=== PATIENT | male | born 2000 | race Caucasian/White ===

== ENCOUNTER 2020-09-27 02:16 | Emergency (ER) | payer SELFPAY ==
[2020-09-27 02:19] VITALS: BP 155/77; PULSE 110; RESP 18; TEMP 36.4; O2SAT 100
--- NOTE | 2020-09-27 02:37 | ED.SKABFB ---
HPI - Skin/Abscess/Foreign Bdy General Chief complaint: Skin/Abscess/Foreign Body Stated complaint: hives Time Seen by Provider: 09/27/20 02:35 History of Present Illness HPI narrative: Sudden onset of hives on the chest, back, neck and extremities. Started about 20 minutes prior to arrival here. This was associated with mild fullness in his throat. No obvious exposures. He has had them multiple times since moving in with his girlfriend. Seem to be getting worse each time. At the time of my evaluation symptoms have nearly resolved. Related Data Allergies Allergy/AdvReac Type Severity Reaction Status Date / Time banana Allergy Unknown Unknown Verified 09/27/20 02:21 Review of Systems Review of Systems: All systems reviewed & are unremarkable except as noted in HPI and below Constitutional: Constitutional: Denies chills and Denies fever(s) ENT: Denies sore throat Cardiovascular: Cardiovascular: Denies chest pain Respiratory: Respiratory: Denies dyspnea Gastrointestinal: Gastrointestinal: Denies abdominal pain, Denies nausea and Denies vomiting Musculoskeletal: Musculoskeletal: Denies back pain Integumentary/Breasts: Skin/Breast: Reports rash Neurologic: Denies weakness Allergic/Immunologic: Allergic/Immunologic: Denies lip swelling, Reports throat swelling and Denies tongue swelling [facility] Past Medical History Medical History (Updated 10/15/20 @ 13:12 by Desmond Barlow MD) Healthy adult Social History Social History Smoking packs per day: 0.5 Smoking cigarettes per day: 10.0 Smoking status: Current every day smoker Gender identity (if verbalized by the patient): Male Exam Const: General: healthy appearing, no acute distress and alert Orientation/consciousness: patient oriented x3 HENMT: Head: normal to inspection Mouth: Yes Normal oral and palatal mucosa present Eyes: Pupils: Equal, round and reactive pupils present EOM: EOMs intact bilaterally Neck: Neck: normal visual inspection and no lymphadenopathy Other: no stridor Chest: Chest palpation & inspection: normal inspection of the chest Resp: Effort & Inspection: normal respiratory effort Auscultation: clear to auscultation bilaterally, no rales, no rhonchi and no wheezes Cardio: Jugular venous distension: no JVD Rate: regular rate Rhythm: regular rhythm Heart sounds: no murmurs GI: Inspection: non-distended GI Palp: Yes Soft to palpation and No Tenderness to palpation present (GI) Skin: Other: nonspecific red rash to upper back Neuro: General: patient oriented x3 and moves all extremities Speech: normal speech Extrem: General: no edema Psych: Appearance: grossly normal and well kempt Mental Status: mental status grossly normal Affect: normal affect Course Vital Signs Vital signs: Vital Signs Temperature 36.4 C L 09/27/20 02:19 Pulse Rate 110 H 09/27/20 02:19 Respiratory Rate 18 09/27/20 02:19 Blood Pressure 155/77 H 09/27/20 02:19 Pulse Oximetry 100 09/27/20 02:19 Temperature 36.4 C L 09/27/20 02:19 Pulse Rate 110 H 09/27/20 02:19 Respiratory Rate 18 09/27/20 02:19 Blood Pressure 155/77 H 09/27/20 02:19 Pulse Oximetry 100 09/27/20 02:19 MDM - Skin/Abscess/Foreign Bdy MDM Narrative Medical decision making narrative: It seems that he has some recurrent allergic reaction. Symptoms resolving rapidly at this time. I discussed the need for allergy testing and suggested paying close attention to any possible causitive exposures as his symptoms will probably continue to worsen with each episode. Differential Diagnosis Differential diagnosis: Likely urticaria, insect bites and contact dermatitis Medical Records Attestation: I reviewed the patient's medical records. Discharge Plan Discharge Clinical Impression: Urticaria Patient Disposition: Home, Self-Care Condition: Stable Instructions: Urticaria (ED) Prescriptio
== END 2020-09-27 02:41 | disposition home or self-care (01) ==
PROVIDERS: Emergency Provider Emergency Medicine
DX: L50.9 Urticaria, unspecified (principal); F17.210 Nicotine dependence, cigarettes, uncomplicated
CPT/HCPCS: 99283

== ENCOUNTER 2021-01-14 17:35 | Emergency (ER) | payer SELFPAY ==
--- NOTE | 2021-01-14 17:45 | ED.NAVMDI ---
HPI - Nausea/Vomiting/Diarrhea General Chief complaint: Nausea/Vomiting/Diarrhea Stated complaint: abd pain Time Seen by Provider: 01/14/21 17:52 Source: patient and RN notes reviewed Mode of arrival: ambulatory Limitations: no limitations History of Present Illness HPI Narrative: 21-[id number]-year-old male presents with concern for 2 episodes of vomiting this morning. Reports nausea throughout the rest of the day. He denies abdominal pain, diarrhea, fever, aches, chills, sweats, sore throat, headache, general malaise. Denies any known sick contacts. Reports he has been drinking liquids, has not tried to eat any food. Reports normal bowel movements. MD elicited complaint: vomiting Related Data Allergies Allergy/AdvReac Type Severity Reaction Status Date / Time banana Allergy Unknown Unknown Verified 01/14/21 17:44 Review of Systems Review of Systems: Narrative: CONSTITUTIONAL: Denies malaise, chills, sweats, or fever. EYES: Denies visual changes, redness, or discharge. ENT: Denies rhinorrhea, congestion, sinus pain, otalgia or sore throat. CARDIOVASCULAR: Denies chest pain, palpitations, or edema. RESPIRATORY: Denies cough or dyspnea. GASTROINTESTINAL: Denies abdominal pain, diarrhea, bloody, or mucous stools. Reports nausea and vomiting GENITOURINARY: Denies dysuria or hematuria. SKIN: Denies rash or itching. MUSCULOSKELETAL: Denies back pain, joint pain, or myalgia. NEUROLOGIC: Denies numbness, weakness, or headache. PSYCHIATRIC: Denies anxiety or depression. All systems reviewed & are unremarkable except as noted in HPI and below PMFSH Past Medical History Medical History (Updated 01/14/21 @ 18:01 by Radha Parikh NP) Healthy adult Social History Social History Smoking packs per day: 0.5 Smoking cigarettes per day: 10.0 Smoking status: Current every day smoker Gender identity (if verbalized by the patient): Male Comments At time of signature, agree with nursing past medical, surgical, social and family history. There is no relevant family history pertinent to the presenting complaint Exam Narrative: Exam Narrative: GENERAL: Well-appearing, well-nourished, and in no acute distress. HEAD: Normocephalic, atraumatic. EYES: PERRLA, conjunctivae clear, and EOMI. ENT: Nares clear, turbinates pink, no rhinorrhea or epistaxis. Mucous membranes moist. Oropharynx without edema, erythema, or lesions. Tonsils not enlarged and without exudate. NECK: Supple. No lymphadenopathy CHEST: Speaks in full sentences. No respiratory distress. HEART: Regular rate and rhythm. ABDOMEN: Soft, flat, nondistended. No guarding, rebound tenderness, or rigid. No pulsatilla masses. Bowel sounds present in all four quadrants. No organomegaly. Negative Romero?s sign. No periumbilical tenderness. No Supra public tenderness or distension. Good femoral pulses bilaterally. No hernia noted. No scars or surface trauma. SKIN: Warm, dry, no rash. NEURO: Alert and oriented x3. PSYCH: Normal mood and affect Course Course Emergency Course: Patient is aware of diagnosis, understands and agrees to treatment plan. Anticipatory guidance given. Patient agrees to follow-up as directed and is aware of reasons to seek care at the emergency department. Portions of this record may have been created with voice recognition software Vital Signs Vital signs: Vital Signs Temperature 97.8 F 01/14/21 17:51 Pulse Rate 103 H 01/14/21 17:51 Respiratory Rate 18 01/14/21 17:51 Blood Pressure 138/72 01/14/21 17:51 Pulse Oximetry 99 01/14/21 17:51 Temperature 97.8 F 01/14/21 17:51 Pulse Rate 103 H 01/14/21 17:51 Respiratory Rate 18 01/14/21 17:51 Blood Pressure 138/72 01/14/21 17:51 Pulse Oximetry 99 01/14/21 17:51 Reviewed. MDM - Nausea/Vomiting/Diarrhea MDM Narrative Medical decision making narrative: No evidence of pancreatitis, AAA, cholecystitis, choledocholithia
[2021-01-14 17:51] VITALS: BP 138/72; PULSE 103; RESP 18; TEMP 36.6; O2SAT 99
== END 2021-01-14 18:05 | disposition home or self-care (01) ==
PROVIDERS: Emergency Provider Nurse Practitioner
DX: R11.2 Nausea with vomiting, unspecified (principal); F17.210 Nicotine dependence, cigarettes, uncomplicated
CPT/HCPCS: 99213; G0463

== ENCOUNTER 2021-12-03 13:24 | Emergency (ER) | payer SELFPAY ==
[2021-12-03 13:35] VITALS: BP 120/75; PULSE 69; RESP 16; TEMP 36.4; O2SAT 99
--- NOTE | 2021-12-03 13:42 | ED.EYEPROB ---
HPI - Eye Problem General Chief complaint: Eye Problems Stated complaint: redness allison eyes Time Seen by Provider: 12/03/21 13:42 Source: patient, RN notes reviewed and old records reviewed Mode of arrival: ambulatory Limitations: no limitations History of Present Illness HPI Narrative: 21-year-old male presents to the [facility] with red eyes bilaterally since Sunday, 3 days. No treatment prior to arrival. Is supposed to wear glasses but does not have them. Denies any change in vision. Denies any discharge. Denies any trauma. Denies any pain MD chief complaint: eye redness Related Data Allergies Allergy/AdvReac Type Severity Reaction Status Date / Time banana Allergy Unknown Unknown Verified 01/14/21 17:44 Review of Systems Review of Systems: All systems reviewed & are unremarkable except as noted in HPI and below Constitutional: Constitutional: Reports no additional constitutional complaints, Denies chills and Denies fever(s) Eyes: Eyes: Reports as per HPI, Denies change in vision and Denies photophobia Comments: Eye redness ENT: Reports system reviewed and no additional complaints, except as documented and Denies sore throat Cardiovascular: Cardiovascular: Reports no additional cardiovascular complaints and Denies chest pain Respiratory: Respiratory: Reports no additional respiratory complaints, Denies cough and Denies dyspnea Gastrointestinal: Gastrointestinal: Reports no additional gastrointestinal complaints, Denies abdominal pain, Denies nausea and Denies vomiting Musculoskeletal: Musculoskeletal: Reports no additional musculoskeletal complaints Integumentary/Breasts: Skin/Breast: Reports system reviewed and no additional complaints, except as docu Neurologic: Reports system reviewed and no additional complaints, except as documented Psychiatric: Psychiatric: Reports no additional psychiatric complaints Allergic/Immunologic: Allergic/Immunologic: Reports no additional allergic/immunologic complaints [facility] Past Medical History Medical History Healthy adult Social History Social History Smoking packs per day: 0.5 Smoking cigarettes per day: 10.0 Smoking status: Current every day smoker Gender identity (if verbalized by the patient): Male Comments At the time of my signature, I reviewed and agree with the nursing past medical, surgical, social, and family history. There is no relevant family history pertinent to the patient complaint. Exam Const: General: healthy appearing, no acute distress and alert; No ill appearing Nutritional Appearance: well nourished Orientation/consciousness: patient oriented x3 Limitations: no limitations HENMT: Head: normal to inspection Ears: external ears normal, TM's normal bilaterally and EAC's normal Eyes: Visual Damico: normal visual damico by confrontation Alignment and Position: alignment normal Eyelids: eyelids normal Conjunctivae: conjunctivae normal Cornea: corneas abnormal bilateral other (Redness); without abrasions and with no foreign body noted Pupils: Equal, round and reactive pupils present Direct Ophthalmoscopy: no photophobia Neck: Neck: normal visual inspection, no lymphadenopathy and no meningeal signs Chest: Chest palpation & inspection: normal inspection of the chest Resp: Effort & Inspection: normal respiratory effort and no use of accessory muscles Auscultation: clear to auscultation bilaterally, no crackles, no rales, no rhonchi and no wheezes Cardio: Rate: regular rate Rhythm: regular rhythm Back/Spine/Pelvis: Back: no CVA tenderness Skin: General skin exam: normal color Rashes: no rashes Wounds: no wounds Neuro: General: patient oriented x3, moves all extremities, no meningeal signs and no focal motor deficits Cranial nerves: Yes Nystagmus not present Speech: normal speech Gait exam (Neuro): Normal gait present Extrem: General:
== END 2021-12-03 14:02 | disposition home or self-care (01) ==
PROVIDERS: Emergency Provider Nurse Practitioner
DX: H57.89 Other specified disorders of eye and adnexa (principal); F17.210 Nicotine dependence, cigarettes, uncomplicated
CPT/HCPCS: 99213; G0463

== ENCOUNTER 2022-04-23 20:56 | Emergency (ER) | payer OTHER, SELFPAY ==
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
[2022-04-23 20:58] VITALS: BP 138/80; PULSE 101; RESP 20; TEMP 36.7; O2SAT 99
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
[2022-04-23 22:22] VITALS: PULSE 85; RESP 16; O2SAT 97
[2022-04-23] MEDS: methocarbamoL 500 MG TABLET PO (22:55)
[2022-04-23] MEDS: KETOROLAC (*BKC) 60 MG/2 ML VIAL IM (22:55)
[2022-04-23 23:20] VITALS: BP 127/62; PULSE 65; RESP 16; TEMP 36.7; O2SAT 98
== END 2022-04-23 23:21 | disposition home or self-care (01) ==
PROVIDERS: Emergency Provider Nurse Practitioner Family
DX: M54.50 Low back pain, unspecified (principal); S20.20XA Contusion of thorax, unspecified, initial encounter; F17.210 Nicotine dependence, cigarettes, uncomplicated; V43.52XA Car driver injured in collision with other type car in traffic accident, initial encounter
CPT/HCPCS: 71250; 72100; 96372; 99284; A9270; J1885

== ENCOUNTER 2023-04-29 23:22 | Emergency (ER) | payer SELFPAY ==
[2023-04-29 23:25] VITALS: BP 146/88; PULSE 77; RESP 16; TEMP 36.7; O2SAT 100
[2023-04-30 00:16] VITALS: BP 146/90; PULSE 74; RESP 15; TEMP 36.8; O2SAT 100
--- NOTE | 2023-04-30 00:56 | ED.DENTAL ---
HPI - Dental/Oral General Chief complaint: Dental/Oral Stated complaint: left facial swelling, dental pain Time Seen by Provider: 04/30/23 00:08 Source: patient Mode of arrival: ambulatory Limitations: no limitations History of Present Illness HPI Narrative: This is a 23-year-old male who presents to the ED with chief complaint of left upper dental pain for the past few days. Reports a little bit of facial swelling with this. Denies any fevers, chills, drainage, skin changes, drooling, trismus. States he does have a dentist that he can get in touch with this week. Related Data Allergies Allergy/AdvReac Type Severity Reaction Status Date / Time banana Allergy Unknown Unknown Verified 04/29/23 23:22 Review of Systems Review of Systems: CONSTITUTIONAL: Denies fever, chills, or sweats. EYES: Denies visual changes, redness, or discharge. ENT: See HPI CARDIOVASCULAR: Denies chest pain, palpitations, or edema. RESPIRATORY: Denies cough or dyspnea. GASTROINTESTINAL: Denies abdominal pain, nausea, vomiting, or diarrhea. GENITOURINARY: Denies dysuria or hematuria. SKIN: Denies rash or itching. MUSCULOSKELETAL: Denies back pain, joint pain, or myalgia. NEUROLOGIC: Denies headache, numbness, dizziness, or weakness. PSYCHIATRIC: Denies anxiety or depression. PMFSH Past Medical History Medical History Healthy adult Social History Social History Smoking packs per day: 0.5 Smoking cigarettes per day: 10.0 Smoking status: Current every day smoker Gender identity (if verbalized by the patient): Male Exam Narrative: GENERAL: Well-appearing, well-nourished, and in no acute distress. HEAD: Normocephalic, atraumatic. EYES: PERRLA and EOMI. ENT: Nares clear, no rhinorrhea or epistaxis. Mucous membranes moist. Oropharynx without tonsillar hypertrophy exudate or other lesions. Some area of swelling and tenderness noted around the left lateral incisor. He has a little bit of facial swelling on the left. No overt skin changes or abscess appreciated. No drooling or trismus. Floor the mouth is intact. NECK: Supple. No adenopathy or masses. CHEST: No respiratory distress. Clear to auscultation. No wheezes rales or rhonchi HEART: Regular rate and rhythm. No murmur heard. Normal peripheral pulses. ABDOMEN: Soft, nontender, nondistended, normal active bowel sounds. MSK: Normal range of motion. No edema. SKIN: Warm, dry, no rash. NEURO: Alert and oriented x3. No focal deficits. PSYCH: Normal mood and affect. Course Vital Signs Vital signs: Vital Signs Temperature 98.1 F 04/29/23 23:25 Pulse Rate 77 04/29/23 23:25 Respiratory Rate 16 04/29/23 23:25 Blood Pressure 146/88 H 04/29/23 23:25 Pulse Oximetry 100 04/29/23 23:25 Temperature 98.2 F 04/30/23 00:16 Pulse Rate 63 04/30/23 01:36 Respiratory Rate 14 04/30/23 01:36 Blood Pressure 136/87 04/30/23 01:36 Pulse Oximetry 99 04/30/23 01:36 Discharge Plan Discharge Clinical Impression: Dental caries, Dental infection Patient Disposition: Home, Self-Care Condition: Stable Instructions: Antibiotic Form Additional Instructions: Sending antibiotics to your pharmacy. Please take these all the way through. If you have any new or worsening symptoms please return to the ER for further evaluation. Otherwise please follow-up closely with your dentist for your dental pain. Prescriptions: New amoxicillin-pot clavulanate 875-125 mg tablet 1 tablet PO Q12H Qty: 14 0RF No Action naproxen 500 mg tablet 500 mg PO BID Qty: 14 0RF methocarbamol 500 mg tablet 500 mg PO TID Qty: 20 0RF Follow-up/Referrals: PHYSICIAN,TURNTABLE MAN [Primary Care Provider] - Stand Alone Forms: Work/School Release IP Time of Disposition: :
[2023-04-30 01:01] VITALS: BP 144/103; PULSE 73; RESP 15; O2SAT 100
[2023-04-30] MEDS: HYDROcodone/acetaminophen (*CRX) 5-325 MG TABLET 1 TAB PO (01:05)
[2023-04-30] MEDS: AMOXICILLIN/CLAVULANATE K 875-125 MG TAB 1 TABLET PO (01:05)
[2023-04-30 01:36] VITALS: BP 136/87; PULSE 63; RESP 14; O2SAT 99
== END 2023-04-30 01:37 | disposition home or self-care (01) ==
PROVIDERS: Emergency Provider Physician Assistant
DX: K02.9 Dental caries, unspecified (principal); K04.7 Periapical abscess without sinus; F17.210 Nicotine dependence, cigarettes, uncomplicated
CPT/HCPCS: 99283; A9270

== ENCOUNTER 2024-02-27 11:58 | Emergency (ER) | payer SELFPAY ==
--- NOTE | ~2024-02-27 | XR_ITS ---
EXAMINATION: XR hand RT min 3V DATE: 02/27/2024 12:50 INDICATION: Right hand injury. TECHNIQUE: 3 views of right hand were obtained. COMPARISON: None. FINDINGS: Bone alignment is normal. There is an old healed fracture of fifth metacarpal. No acute fra cture. Joint spaces are normal. IMPRESSION: 1. No acute fracture. Reviewed, dictated and finalized at location A. IMPRESSION: 1. No acute fracture.
[2024-02-27 12:04] VITALS: BP 132/82; PULSE 61; RESP 18; TEMP 36.6; O2SAT 100
--- NOTE | 2024-02-27 12:24 | ED.WOUNDLAC ---
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 This injury happened today at approximately 10:00 a.m.. Bleeding is controlled. Patient cannot recall his last tetanus immunization. Related Data Allergies Allergy/AdvReac Type Severity Reaction Status Date / Time banana Allergy Unknown Unknown Verified 04/29/23 23:22 [facility] Past Medical History Medical History (Updated 02/28/24 @ 00:03 by Zackary Jeffries) Dental caries Healthy adult Social History Social History Smoking packs per day: 0.5 Smoking cigarettes per day: 10.0 Smoking status: Current every day smoker Gender identity (if verbalized by the patient): Male Exam Narrative: GENERAL: Well-appearing, well-nourished, and in no acute distress. HEAD: Normocephalic, atraumatic. EYES: Non injected, non icteric ENT: Nares clear, no rhinorrhea or epistaxis. dental caries NECK: Supple. CHEST: Speaking in complete sentences. No respiratory distress. HEART: Regular rate and rhythm. ABDOMEN: Soft, nondistended. EXTREMITIES: Normal range of motion. No edema. SKIN: Warm, dry. 1cm superficial curvilinear injury over 3rd MCP, bleeding controlled. NEURO: No focal deficits. Sensation intact. Patient states he is unable to make a full fist but is able to demonstrate nearly full flexion of fingers. Extension intact. Not held in fixed flexion/extension. Warm and well perfused hand/fingers. PSYCH: Normal mood and affect. Course Vital Signs Vital signs: Vital Signs Temperature 97.8 F 02/27/24 12:04 Pulse Rate 61 02/27/24 12:04 Respiratory Rate 18 02/27/24 12:04 Blood Pressure 132/82 02/27/24 12:04 Pulse Oximetry 100 02/27/24 12:04 Temperature 97.8 F 02/27/24 12:04 Pulse Rate 61 04/03/24 12:04 Respiratory Rate 18 02/27/24 12:04 Blood Pressure 132/82 02/27/24 12:04 Pulse Oximetry 100 02/27/24 12:04 Procedures Laceration Laceration 1: Date: 02/27/24 Site: hand Side (If applicable): right Description: other (curvilinear) Depth: simple, single layer ====== Skin Level ====== Skin layer closed with: dermabond ====== Subcutaneous Layer ====== ====== Muscle Layer ====== ====== Tendon Layer ====== MDM - Wound/Laceration MDM Narrative Medical decision making narrative: Zvavf-[id number]-[id number] male who presents after hitting his right 3rd MCP on a piece of metal at work . In the emergency department they are afebrile with vital signs within normal limits. Patient's tetanus status is unknown thus will administer. He is also given analgesia. it does appear that this was a partial avulsion injury however superficial. Bleeding controlled Area is well irrigated under warm water and dermabond applied. Patient discharged in stable condition. Differential Diagnosis Differential diagnosis: Likely laceration, avulsion of skin and other (fracture/dislocation; tendon/ligament injury) Imaging Data Radiologist's impression: Impressions Hand X-Ray 02/27/24 12:51 IMPRESSION: 1. No acute fracture. Discharge Plan Discharge Clinical Impression: Laceration of hand, right Patient Disposition: Home, Self-Care Condition: Stable Instructions: Antibiotic Form, Laceration (DC), Skin Adhesive Care (ED) Additional Instructions: No broken bone. Your tetanus shot was updated. Keep the wound clean warm and dry. Dermabond/tissue adhesive was used. Follow-up with primary care physician as needed. if you do not have 1
[2024-02-27] MEDS: ACETAMINOPHEN 500 MG TABLET 1000 MG PO (12:35)
[2024-02-27] MEDS: TETANUS,DIPHTHERIA,AC PERTUSSIS ADULT (0.5 ML) BOOSTRIX IM (12:36)
== END 2024-02-27 13:30 | disposition home or self-care (01) ==
PROVIDERS: Emergency Provider Student in an Organized Health Care Education/Training Program
DX: S61.411A Laceration without foreign body of right hand, initial encounter (principal); Z23 Encounter for immunization; F17.210 Nicotine dependence, cigarettes, uncomplicated; W26.8XXA Contact with other sharp object(s), not elsewhere classified, initial encounter
CPT/HCPCS: 12001; 73130; 90471; 90715; 99283; A9270

== ENCOUNTER 2025-01-04 00:40 | Emergency (ER) | payer SELFPAY ==
--- NOTE | ~2025-01-04 | XR_ITS ---
EXAMINATION: XR finger 1st RT min 2V DATE: 01/04/2025 01:02 INDICATION: Right thumb injury TECHNIQUE: Dorsal palmar, lateral and oblique views of the right first digit were obtained COMPARISON: 02/27/2024 FINDINGS: Alignment is normal. No fracture. Joint spaces are normal. Soft tissues are unremarkable. IMPRESSION: 1. Normal right thumb radiographs. Reviewed, dictated and finalized at location A. O PRODUCER
[2025-01-04 00:41] VITALS: BP 148/71; PULSE 100; RESP 17; TEMP 36.3; O2SAT 100
--- NOTE | 2025-01-04 01:05 | ED_ITS ---
HPI - Extremity Injury (Upper) General Chief Complaint: Extremity Injury, Upper Stated Complaint: possible R broken thumb Time Seen by Provider: 01/04/25 00:54 Source: patient Mode of arrival: ambulatory Limitations: no limitations History of Present Illness HPI narrative: Patient is a 24-year-old male who presents the ED with report of right thumb pain. Patient reports he was attempting to lift up his mattress to get his dog out from underneath the bed and felt a sharp pain in his right thumb. Feels like his right thumb bent backwards. Complains of pain to the base of his R thumb. Denies any other injuries. Denies numbness. Related Data Allergies Allergy/AdvReac Type Severity Reaction Status Date / Time banana Allergy Unknown Unknown Verified 01/04/25 00:41 Review of Systems Review of Systems: All systems reviewed & are unremarkable except as noted in HPI. All systems reviewed & are unremarkable except as noted in HPI and below PMFSH Past Medical History Medical History Dental caries Healthy adult Social History Social History Smoking packs per day: 0.5 Smoking cigarettes per day: 10.0 Smoking status: Current every day smoker Gender identity (if verbalized by the patient): Male Exam Narrative: GENERAL: Well appearing, well-nourished, non-toxic, in no acute distress. HEAD: Normocephalic, atraumatic. RESPIRATORY: Airway patent, respirations nonlabored. CARDIOVASCULAR: Regular rate and rhythm. Radial pulses strong and easily palpable MUSCULOSKELETAL: No gross deformities. Limited ROM of R thumb flexion and abd uction d/t pain. TTP along R thumb MCP region, mild swelling noted. Tenderness extending slightly proximally along 1st metacarpal. No redness or warmth of joint. Sensation intact. Capillary refill intact. SKIN: Warm, dry, normal color. NEURO: A&O X3. Speech clear. PSYCHIATRIC: Appropriate mood and affect. Normal interaction. Course Vital Signs Vital signs: Vital Signs Temperature 97.4 F L 01/04/25 00:41 Pulse Rate 100 01/04/25 00:41 Respiratory Rate 17 01/04/25 00:41 Blood Pressure 148/71 H 01/04/25 00:41 Pulse Oximetry 100 01/04/25 00:41 Oxygen Delivery Room Air 01/04/25 00:41 Temperature 97.4 F L 01/04/25 00:41 Pulse Rate 100 01/04/25 00:41 Respiratory Rate 17 01/04/25 00:41 Blood Pressure 148/71 H 01/04/25 00:41 Pulse Oximetry 100 01/04/25 00:41 Oxygen Delivery Room Air 01/04/25 00:41 MDM - Extremity Injury (Upper) MDM Narrative Medical decision making narrative: patient presented to ED with injury to right thumb. Patient?s injury is consistent with musculoskeletal etiology. No signs of neurologic or vascular compromise on physical examination. Compartments are soft without signs of compartment syndrome. XR Of right thumb interpreted by myself without evidence of acute osseous abnormality. Discussed this with patient. Suspect ligamentous injury, gamekeeper's thumb. Patient will be placed in thumb spica splint here. I did discuss that patient could buy an oeea-nfo-lwybute thumb spica splint that would be more easily removed as needed. Will refer patient to Hand surgery for further evaluation. Discussed rice therapy, Tylenol/ ibuprofen as needed for pain. Patient declined pain medicine here. Given return precautions. Discharged in stable condition. Medical Records Attestation: I reviewed the patient's medical records. Imaging Data Attestation: I personally reviewed and interpreted this imaging study as follows: My impression: XR R 1st finger: No acute osseous abnormality. Discharge Plan Discharge Clinical Impression: Strain of right thumb Patient Disposition: Home, Self-Care Condition: Stable Instructions: Antibiotic Form, Skier's Thumb (ED), Finger Sprain (ED) Additional Instructions: Utilize splint for compression and support. You may buy an zmcs-hnz-hhhqaxj thumb spica splint that can be more easily removed. Follow-up with hand surgery for further evaluation if needed. Recommend Tylenol and ibuprofen as needed for pain, elevation of right hand, ice to the thumb as needed. Return to the ED if you experience worsening or severe pain, recurrent injury, numbness, or any other symptoms of concern. Patient Language: Latvian Prescriptions: No Action amoxicillin-pot clavulanate 875-125 mg tablet 1 tablet PO Q12H Qty: 14 0RF naproxen 500 mg tablet 500 mg PO BID Qty: 14 0RF methocarbamol 500 mg tablet 500 mg PO TID Qty: 20 0RF ibuprofen 600 mg tablet 600 mg PO TID PRN (Reason: pain) Qty: 20 0RF acetaminophen 500 mg capsule 1,000 mg PO Q6H PRN (Reason: pain) Qty: 20 0RF Follow-up/Referrals: Zakiya Garza MD [Physician] - (HAND SURGERY) UNKNOWN,DOCTOR [Non-Staff] - Time of Disposition: 01:51
[2025-01-04 02:10] VITALS: PULSE 78; RESP 15; O2SAT 99
== END 2025-01-04 02:12 | disposition home or self-care (01) ==
PROVIDERS: Emergency Provider Physician Assistant
DX: S66.411A Strain of intrinsic muscle, fascia and tendon of right thumb at wrist and hand level, initial encounter (principal); F17.210 Nicotine dependence, cigarettes, uncomplicated; X50.9XXA Other and unspecified overexertion or strenuous movements or postures, initial encounter
CPT/HCPCS: 29125; 73140; 99283

== ENCOUNTER → 2025-01-06 14:25 | Emergency (ER) | payer SELFPAY | END | disposition left against medical advice (07) | PROVIDERS: Emergency Provider Nurse Practitioner Family | DX: Z53.21 Procedure and treatment not carried out due to patient leaving prior to being seen by health care provider (principal) | CPT/HCPCS: 99199 ==

== ENCOUNTER 2025-05-16 14:38 | Emergency (ER) | payer SELFPAY ==
--- NOTE | 2025-05-16 14:41 | ED.WOUNDLAC ---
HPI - Wound/Laceration General Chief Complaint: Wound/Laceration Stated Complaint: Left Arm Laceration Time Seen by Provider: 05/16/25 14:40 Source: patient Mode of arrival: ambulatory Limitations: no limitations History of Present Illness HPI narrative: Gerry is a 25-year-old male patient presenting to the clinic today with complaints of a left arm laceration. He reports he was cutting zip ties off of his license plates when he accidentally cut his left volar forearm. Bleeding is controlled. This occurred at 10:00 last night. Tetanus is ri-bj-bxvu-February 2024 Related Data Allergies Allergy/AdvReac Type Severity Reaction Status Date / Time banana Allergy Unknown Unknown Verified 05/16/25 14:48 Review of Systems Review of Systems: Pertinent positives per HPI. Patient denies any fever, chills, rash, headache, visual changes, dizziness, cough, runny nose, sore throat, shortness of breath, chest pain, palpitations, nausea, vomiting, diarrhea, constipation, abdominal pain, or any urinary issues. PMFSH Past Medical History Medical History Dental caries Healthy adult Social History Social History Smoking packs per day: 0.5 Smoking cigarettes per day: 10.0 Smoking status: Current every day smoker Gender identity (if verbalized by the patient): Male Comments At the time of my signature, I reviewed and agree with the nursing past medical, surgical, social, and family history. There is no relevant family history pertinent to the patient complaint. Exam Narrative: General: Well-developed, well nourished, in no apparent distress Head: Normocephalic, atraumatic. Cardio: Regular rate and rhythm, s1 and s2 normal, no murmur appreciated. Resp: Clear to auscultation bilaterally, no rhonchi, rales, wheezing or rubs. Integumentary: [place], warm, and dry, 3 cm moderately gaping skin avulsion/laceration to the volar left forearm, bleeding is controlled Course Course Emergency Course: Portions of this record may have been created with voice recognition software. Level of Care: Express Care Visit Vital Signs Vital signs: Vital Signs Temperature 36.9 C 05/16/25 14:46 Pulse Rate 77 05/16/25 14:46 Respiratory Rate 20 05/16/25 14:46 Blood Pressure 143/75 H 05/16/25 14:46 Pulse Oximetry 97 05/16/25 14:46 Oxygen Delivery Room Air 05/16/25 14:46 Temperature 36.9 C 05/16/25 14:46 Pulse Rate 77 05/16/25 14:46 Respiratory Rate 20 05/16/25 14:46 Blood Pressure 143/75 H 05/16/25 14:46 Pulse Oximetry 97 05/16/25 14:46 Oxygen Delivery Room Air 05/16/25 14:46 Vital signs reviewed Procedures Laceration Laceration 1: Date: 05/16/25 Site: upper extremity Side (If applicable): left Size (cm): 3 Description: flap and irregular Depth: simple, single layer Local Anesthetic: lidocaine 1% and with epi Amount of anesthesia used (mL): 2 Pre-repair: wound explored and irrigated ====== Skin Level ====== Skin layer closed with: nylon Size (cm): 5-0 Number of sutures: 4 Technique: simple, interrupted ====== Subcutaneous Layer ====== Subcutaneous layer closed with: vicryl Size: 5-0 Number of sutures: 2 Technique: simple, interrupted ====== Muscle Layer ====== ====== Tendon Layer ====== Dressing: Verbal consent obtained for laceration repair. Risk and benefits explained and patient voiced understanding. Area was cleansed with antiseptic wound wash and a 27 gauge needle was then used to instill (2) ml of 1% lidocaine with epi into the wound edges. Area was prepped and draped using sterile technique. A Vicryl 5 0 suture was used to close subcutaneous tissue placing 2 interrupted sutures. A Ethilon 5-0 suture on a p needle was used to place (4) interrupted sutures bringing the wound edges together- well approximated. Patient tolerated procedure well. Sterile dressing applied. MDM - Wound/Laceration MDM Narrative Medical decision making narrative: At the time of visit patient is resting comfortably on the exam table. Patient appears to be nontoxic. Procedures: Laceration repair was performed in the clinic today. Two subcutaneous sutures placed and four 5-0 interrupted sutures were placed bringing the skin well approximate. Patient tolerated well Plan: Patient has laceration to left forearm. Wound repair was performed. Patient tolerated well. Will place patient on Keflex as above the laceration is over 12 hours old. Supportive measures were discussed with the patient and they voiced understanding discharge instructions and agrees to treatment plan. Return precautions reviewed Differential Diagnosis Differential diagnosis: Likely laceration, abscess, abrasion and avulsion of skin Discharge Plan Discharge Clinical Impression: Forearm laceration Qualifiers: Encounter type: initial encounter Laterality: left Qualified Code(s): S51.812A - Laceration without foreign body of left forearm, initial encounter Patient Disposition: Home Condition: Stable Instructions: Antibiotic Form, Laceration (ED) Additional Instructions: Leave bandage on for 24 hours then may remove and apply band aide covering as needed. Keep wound clean and dry May take Tylenol/Motrin as needed for pain Take Keflex as prescribed Skin sutures out in 10 days. Watch for signs and symptoms of infection- redness, streaking, swelling, purulent discharge, or increase in pain. Follow up with your PCP for suture removal or return to the Express care. Patient Language: Urdu Prescriptions: New cephalexin 500 mg capsule 500 mg PO Q12H 7 Days Qty: 14 0RF Follow-up/Referrals: PHYSICIAN,CHILD CARE SPECIALIST [Primary Care Provider] - Time of Disposition: 14:49 Quality NIHSS Nursing Documentation ED NIHSS nursing documentation: reviewed/agree
[2025-05-16 14:46] VITALS: BP 143/75; PULSE 77; RESP 20; TEMP 36.9; O2SAT 97
[2025-05-16] MEDS: LIDO 1%/EPINEPHRINE 1:100,000 20 ML VIAL INFILTRATE (14:52)
== END 2025-05-16 15:25 | disposition home or self-care (01) ==
PROVIDERS: Emergency Provider Nurse Practitioner Family
DX: S51.812A Laceration without foreign body of left forearm, initial encounter (principal); W45.8XXA Other foreign body or object entering through skin, initial encounter; F17.210 Nicotine dependence, cigarettes, uncomplicated
CPT/HCPCS: 12002; 99213; G0463; J2004

== ENCOUNTER 2025-05-30 12:46 | Emergency (ER) | payer SELFPAY ==
[2025-05-30 12:55] VITALS: BP 125/68; PULSE 58; RESP 20; TEMP 36.6; O2SAT 99
--- NOTE | 2025-05-30 13:29 | ED_ITS ---
HPI - Wound/Laceration General Chief Complaint: Wound/Laceration Stated Complaint: Stitches Removal Time Seen by Provider: 05/30/25 13:29 Source: patient Mode of arrival: ambulatory Limitations: no limitations History of Present Illness HPI narrative: 25-year-old male here for suture removal to left forearm. Cut himself with a knife approximately 2 weeks ago. Sutures were placed at [facility]. All systems reviewed and negative except as noted above. Related Data Home Medications ?Medication ?Instructions ?Recorded ?Confirmed ?Last Taken ?Type No Home Medications 05/30/25 05/30/25 Unknown History Allergies Allergy/AdvReac Type Severity Reaction Status Date / Time banana Allergy Unknown Unknown Verified 05/16/25 14:48 Review of Systems Review of Systems: CONSTITUTIONAL: Denies fever, chills, or sweats. EYES: Denies visual changes, redness, or discharge. ENT: Denies rhinorrhea, congestion, sore throat, or otalgia. CARDIOVASCULAR: Denies chest pain, palpitations, or edema. RESPIRATORY: Denies cough or dyspnea. GASTROINTESTINAL: Denies abdominal pain, nausea, vomiting, or diarrhea. GENITOURINARY: Denies dysuria or hematuria. SKIN: Denies rash or itching. Reports laceration to left forearm, here for sutu re removal MUSCULOSKELETAL: Denies back pain, joint pain, or myalgia. NEUROLOGIC: Denies headache, numbness, or weakness. PSYCHIATRIC: Denies anxiety or depression. All other systems reviewed are negative, except as documented in HPI. [facility] Past Medical History Medical History Dental caries Healthy adult Social History Social History Smoking packs per day: 0.5 Smoking cigarettes per day: 10.0 Smoking status: Current every day smoker Gender identity (if verbalized by the patient): Male Comments At time of signature, agree with nursing past medical, surgical, social and family history. There is no relevant family history pertinent to the presenting complaint. Exam Narrative: GENERAL: This is a well-nourished, well-developed patient, in no apparent distress. HEAD: normocephalic, atraumatic. EYES: PERRL. Sclera clear/white. Vision is grossly intact. EARS: External ears normal NOSE: External nose normal NECK: Neck supple, non-tender without lymphadenopathy, masses or thyromegaly. CARDIOVASCULAR: Regular rate and rhythm without murmurs, gallops, or rubs. RESPIRATORY: Clear to auscultation. Breath sounds equal bilaterally. No wheezes, rales, or rhonchi. SKIN: warm, Dry, intact with no suspicious lesions or rash, good texture and turgor. healing wound to left forearm posterior aspect. No signs of infection. No wound dehiscence. NEURO: awake, alert, and oriented to person, place and time. There were no obvious focal neurologic abnormalities. EXTREMITIES: No joint tenderness, effusion, or edema noted. Course Course Level of Care: Express Care Visit Vital Signs Vital signs: Vital Signs Temperature 36.6 C 05/30/25 12:55 Pulse Rate 58 L 05/30/25 12:55 Respiratory Rate 20 05/30/25 12:55 Blood Pressure 125/68 05/30/25 12:55 Pulse Oximetry 99 05/30/25 12:55 Oxygen Delivery Room Air 05/30/25 12:55 Temperature 36.6 C 05/30/25 12:55 Pulse Rate 58 L 05/30/25 12:55 Respiratory Rate 20 05/30/25 12:55 Blood Pressure 125/68 05/30/25 12:55 Pulse Oximetry 99 05/30/25 12:55 Oxygen Delivery Room Air 05/30/25 12:55 Reviewed MDM - Wound/Laceration MDM Narrative Medical decision making narrative: sutures removed from left forearm without difficulty Discharge Plan Discharge Clinical Impression: Encounter for removal of sutures Patient Disposition: Home Condition: Stable Instructions: Antibiotic Form Patient Language: Divehi Prescriptions: No Action No Home Medications Follow-up/Referrals: PHYSICIAN,STONE DRILLER [Primary Care Provider] - Time of Disposition: 13:34
== END 2025-05-30 13:40 | disposition home or self-care (01) ==
PROVIDERS: Emergency Provider Nurse Practitioner Family
DX: S51.812D Laceration without foreign body of left forearm, subsequent encounter (principal); W26.0XXD Contact with knife, subsequent encounter; F17.210 Nicotine dependence, cigarettes, uncomplicated
CPT/HCPCS: 99211; G0463